=== PATIENT | female | born 1995 | race Caucasian/White ===

== ENCOUNTER 2019-07-31 23:38 | Emergency (ER) | payer OTHER ==
[~2019-07-31] VITALS: Ht 175.3 cm; Wt 95.5 kg
--- NOTE | 2019-08-01 00:05 | NUR ---
at 25 weeks arrives to unit by wheelchair with complaint of vomiting and diarrhea since 1600. Pt states she thinks she ate something bad around 1400. States that no one she is in contact with has had these symptoms. Pt reports good movement, denies vaginal bleeding, or LOF. Pt reports cramping in her abdomen but the cramping is followed by emesis, states that the cramping does not feel like contractions or labor. Pt states that she was just worried about baby since she hasn't been able to keep anything down since 1600. US and toco explained and applied. Plan of care reviewed with patient. Vital signs obtained. Admission assessment started.
[2019-08-01] MEDS ORDERED: PRENATAL (00:15)
[2019-08-01 00:35] VITALS: BP 132/76; PULSE 95; TEMP 98.2
--- NOTE | 2019-08-01 00:35 | NUR ---
Discharge instructions given to pt and family member who verbalizes understanding. Pt instructed to return to ER for further evaluation. Pt wheeled down to ER by [employer] salesperson.
[2019-08-01 01:18] LABS: HEMATOCRIT 41.1 % (37.0-47.0); HEMOGLOBIN 13.6 g/dl (12.5-16.0); MEAN CELL VOLUME 89 fl (80.0-100.0); MEAN CORPUSCULAR HEMOGLOBIN 29 pg (27.0-31.0); MEAN CORPUSCULAR HGB CONC 33 g/dl (33.0-37.0); MEAN PLATELET VOLUME 10.4 fl (7.4-10.4); PLATELET COUNT 245 K/mm3 (130-400); RED BLOOD COUNT 4.64 M/mm3 (4.10-5.30); REDCELL DISTRIBUTION WIDTH-CV 13.3 % (11.5-14.5)
[2019-08-01 01:27] LABS: ALBUMIN 4.3 gm/dL (3.5-5.0); BILIRUBIN,TOTAL 0.6 mg/dL (0.0-1.0); CALCIUM 9.1 mg/dL (8.4-10.2); CREATININE, serum 0.59 (0.52-1.25); TOTAL PROTEIN 7.7 gm/dL (6.4-8.2)
[2019-08-01 01:44] LABS: BAND 9 % (0-10); LYMPHOCYTE 8 % (20.0-51.0); NEUTROPHILS 81 % (42.0-75.2); PLATELET ESTIMATE NORMAL (NORMAL)
[2019-08-01 02:02] LABS: COLLECTION METHOD CLEAN CATCH
[2019-08-01 02:10] LABS: MUCOUS Present /lpf; PH 5 (5-8); URINE APPEARANCE Cloudy; URINE BACTERIA Rare /hpf; URINE BILIRUBIN Negative (NEGATIVE); URINE BLOOD 1+ (NEGATIVE); URINE COLOR Yellow; URINE GLUCOSE Negative (NEGATIVE); URINE KETONE 2+ (NEGATIVE); URINE LEUKOCYTE ESTERASE Trace (NEGATIVE); URINE NITRATE Negative (NEGATIVE); URINE PROTEIN(semi-quant) 1+ (NEGATIVE); URINE UROBILINOGEN Negative (NEGATIVE)
[2019-08-01 02:59] LABS: COLLECTION METHOD CLEAN CATCH
[2019-08-01 03:04] LABS: MUCOUS Present /lpf; PH 5 (5-8); SQUAMOUS EPITHELIAL 0-2 /hpf; URINE APPEARANCE Hazy; URINE BACTERIA None Seen /hpf; URINE BILIRUBIN Negative (NEGATIVE); URINE BLOOD 1+ (NEGATIVE); URINE COLOR Yellow; URINE GLUCOSE Negative (NEGATIVE); URINE KETONE 2+ (NEGATIVE); URINE LEUKOCYTE ESTERASE Negative (NEGATIVE); URINE NITRATE Negative (NEGATIVE); URINE PROTEIN(semi-quant) 1+ (NEGATIVE); URINE UROBILINOGEN Negative (NEGATIVE)
[2019-08-01] MEDS ORDERED: PHENERGAN 25 TA25 MG PO (03:07)
[2019-08-01 03:22] VITALS: BP 113/68; PULSE 99
== END 2019-08-01 03:22 | disposition home or self-care (01) ==
LOC: COL.ER 23:38 → LDRO 23:43 → LDR 23:43 → LDRO 08-01 03:22
PROVIDERS: Nurse Practitioner
DX: O21.2 Late vomiting of pregnancy (principal); O26.892 Other specified pregnancy related conditions, second trimester; R19.7 Diarrhea, unspecified; Z3A.25 25 weeks gestation of pregnancy; Z88.2 Allergy status to sulfonamides
CPT/HCPCS: OP; J2550; J7030